=== PATIENT | female | born 1995 | race Caucasian/White ===

== ENCOUNTER 2020-04-16 21:10 | Observation (INO) ==
[2020-04-16] MEDS ORDERED: FLU Vac QV 20-21 (6Month+)/PF 0.5 ML SYRINGE IM ONE (21:32)
[2020-04-16 22:19] LABS: Bacteria,Urine Few per hpf (None-Few); Bilirubin,Urine Negative (Negative); Blood,Urine Negative (Negative); Clarity,Urine Turbid (Clear); Color,Urine Yellow (Yellow); Glucose,Urine (UA) Normal (Normal); Ketones,Urine Negative (Negative); Leukocyte Esterase,Urine Negative (Negative); Mucus,Urine Few per lpf (None-Few); Nitrite,Urine Negative (Negative); Protein,Urine Trace mg/dL (Neg-Trace); RBC,Urine 0-3 per hpf (0-3); Specific Gravity,Urine 1.021 (1.010-1.025); Squamous Epithelial Cell,Urine Few per hpf (None-Few); Transitional Epi Cells,Urine Few per hpf (None-Few); Urobilinogen,Urine Normal (Normal); WBC,Urine 0-3 per hpf (0-3)
[2020-04-16 23:23] LABS: Candida DNA Not Detected (Not Detect); Gardnerella DNA DETECTED (Not Detect); Trichomonas DNA Not Detected (Not Detect)
== END 2020-04-16 22:40 | disposition home or self-care (01) ==
LOC: 1NENULAB
PROVIDERS: ADMIT Registered Nurse; ATTEND Registered Nurse

== ENCOUNTER 2020-04-27 17:01 | Observation (INO) | END 2020-04-27 17:20 | disposition home or self-care (01) | LOC: 1NENULAB | PROVIDERS: ADMIT Advanced Practice Midwife; ATTEND Advanced Practice Midwife ==

== ENCOUNTER → 2020-06-22 02:07 | Observation (INO) | END | disposition home or self-care (01) | LOC: 1NENULAB | PROVIDERS: ADMIT Advanced Practice Midwife; ATTEND Advanced Practice Midwife ==

== ENCOUNTER 2020-06-29 10:08 | Inpatient (IN) ==
[2020-06-29] MEDS ORDERED: miSOPROStoL 25 MCG TABLET VG PRN (10:28)
[2020-06-29] MEDS ORDERED: Lidocaine 1% 20 ML MDV INFILT PRN (10:29)
[2020-06-29] MEDS ORDERED: Ondansetron 4 MG/2 ML VIAL IVP PRN (10:29)
[2020-06-29] MEDS ORDERED: *HR* Nalbuphine 10 MG/ML AMPUL IV PRN (10:29)
[2020-06-29] MEDS ORDERED: Famotidine 20 MG/2 ML VIAL IVP PRN (10:29)
[2020-06-29] MEDS ORDERED: Azithromycin 500 MG in 0.9 % Sodium Chloride 250 ML IVPB ONE (10:29)
[2020-06-29] MEDS ORDERED: Naloxone 0.4 MG/ML INJ IVP PRN (10:29)
[2020-06-29] MEDS ORDERED: Metoclopramide 10 MG/2 ML VIAL IVP PRN (10:29)
[2020-06-29] MEDS ORDERED: Oxytocin 20 units/ LR 1000 mL 20 UNIT/1,000 ML BAG IVC SCH (10:30)
[2020-06-29 11:27] LABS: Basophils % 0.2 %; Eosinophils # 0.1 K/mcL (0.0-0.6); Eosinophils % 0.6 %; Hematocrit 36.6 % (35.3-44.9); Hemoglobin 11.9 g/dL (11.5-15.4); Lymphocytes # 1.8 K/mcL (0.6-4.6); Lymphocytes % 18.7 %; Mean Corpuscular HGB Conc 32.5 g/dL (31.6-35.5); Mean Corpuscular Hemoglobin 28.3 pg (28.0-33.3); Mean Corpuscular Volume 87.1 fL (83.0-100.0); Mean Platelet Volume 10.8 fL (9.4-12.4); Monocytes # 0.7 K/mcL (0.0-1.3); Monocytes % 7.7 %; Neutrophils # 6.8 K/mcL (1.6-8.9); Platelet Count 239 K/mcL (140-400); Red Cell Distribution Width 13.6 % (11.5-14.5); Segmented Neutrophils % 71.8 %; White Blood Count 9.4 K/mcL (4.3-11.1)
[2020-06-29 11:48] LABS: Amphetamine Screen,Urine Negative ng/mL (Cutoff=1000); Barbiturate Screen,Urine Negative ng/mL (Cutoff=200); Benzodiazepines Screen,Urine Negative ng/mL (Cutoff=200); Cannabinoid Screen,Urine Negative ng/mL (Cutoff = 50); Cocaine Screen,Urine Negative ng/mL (Cutoff= 300); Opiate Screen,Urine Negative ng/mL (Cutoff=300); Phencyclidine Screen,Urine Negative ng/mL (Cutoff=25)
[2020-06-29] MEDS ORDERED: EPHEDrine 50 MG/ML VIAL IVP PRN (11:57)
[2020-06-29] MEDS ORDERED: Epidural Premix (fent/bupiv) 110 ML EP SCH (12:00)
[2020-06-29 12:29] LABS: Adenovirus Not Detected (Not Detect); Bordetella Pertussis Not Detected (Not Detect); Chlamydophila pneumoniae Not Detected (Not Detect); Coronavirus 229E Not Detected (Not Detect); Coronavirus HKU1 Not Detected (Not Detect); Coronavirus NL63 Not Detected (Not Detect); Coronavirus OC43 Not Detected (Not Detect); Human Metapneumovirus Not Detected (Not Detect); Human Rhinovirus/Enterovirus Not Detected (Not Detect); Influenza A Subtype 2009 H1 Not Detected (Not Detect); Influenza B Not Detected (Not Detect); Mycoplasma pneumoniae Not Detected (Not Detect); Parainfluenza Virus 1 Not Detected (Not Detect); Parainfluenza Virus 2 Not Detected (Not Detect); Parainfluenza Virus 3 Not Detected (Not Detect); Parainfluenza Virus 4 Not Detected (Not Detect); Respiratory Syncytial Virus Not Detected (Not Detect); SARS-CoV-2 Not Detected (Not Detect)
[2020-06-29] MEDS: Ringers Solution, Lactated 1,000 ML IVC SCH ×2 (12:36→20:28)
[2020-06-30] MEDS ORDERED: Penicillin G Potassium 5,000,000 UNIT in 0.9 % Sodium Chloride Mini Bag 100 ML IVPB ONE (10:04)
[2020-06-30] MEDS: Ringers Solution, Lactated 1,000 ML IVC SCH (10:08)
[2020-06-30] MEDS ORDERED: Azithromycin 500 MG in 0.9 % Sodium Chloride 250 ML IVPB STA (12:34)
[2020-06-30] MEDS ORDERED: Chloroprocaine/PF 20 ML VIAL INFILT ONE ×2 (12:48→13:12)
[2020-06-30] MEDS ORDERED: *HR* Morphine Sulfate/PF 10 MG/10 ML AMPUL ONE (13:13)
[2020-06-30] MEDS ORDERED: *HR* FentaNYL (PF) 100 MCG/2 ML VIAL ONE (13:13)
[2020-06-30] MEDS ORDERED: Ondansetron 4 MG/2 ML VIAL ONE (13:32)
[2020-06-30 13:35] LABS: Cord Venous Blood HCO3 22 mEq/L; Cord Venous Blood PCO2 50 mmHg (27-42); Cord Venous Blood PO2 23 mmHg (15-45)
[2020-06-30] MEDS ORDERED: *HR* HYDROmorphone (PF) 1 MG/ML SYRINGE IVP PRN (13:43)
[2020-06-30] MEDS ORDERED: Ondansetron 4 MG/2 ML VIAL IVP PRN ×2 (13:43→16:18)
[2020-06-30] MEDS ORDERED: Penicillin G Potassium 2,500,000 UNIT/105 ML MLS IVPB SCH (14:00)
[2020-06-30] MEDS ORDERED: Ropivacaine/PF 0.2% 20 ML VIAL ONE (14:26)
[2020-06-30] MEDS ORDERED: Ketorolac 30 MG/ML VIAL ONE (14:26)
[2020-06-30] MEDS ORDERED: Lidocaine -MPF 1% 5 ML AMPUL ONE (14:26)
[2020-06-30] MEDS ORDERED: Bupivacaine-MPF 0.25% 10 ML VIAL ONE (14:26)
[2020-06-30] MEDS ORDERED: Sennosides 8.6 MG TABLET PO PRN (16:18)
[2020-06-30] MEDS ORDERED: Rho Immune Globulin 1,500 UNIT SYRINGE IM ONE (16:18)
[2020-06-30] MEDS ORDERED: Clindamycin 900 MG/50 ML 900 MG/50 ML IV.SOLN IVPB SCH (16:18)
[2020-06-30] MEDS ORDERED: Metoclopramide 10 MG/2 ML VIAL IVP PRN (16:18)
[2020-06-30] MEDS: *HR* OxyCODONE/APAP 5/325 TABLET PO PRN (16:38)
[2020-06-30] MEDS: Oxytocin 20 units/ LR 1000 mL 20 UNIT/1,000 ML BAG IVC SCH (16:39)
[2020-06-30] MEDS ORDERED: Gentamicin 100 MG in 0.9 % Sodium Chloride 100 ML IVPB ONE (16:56)
[2020-06-30] MEDS: Clindamycin 900 MG/50 ML 900 MG/50 ML IV.SOLN IVPB SCH (18:12)
[2020-06-30] MEDS: Ibuprofen 600 MG TABLET PO PRN (18:19)
[2020-06-30 19:21] LABS: BUN/Creatinine Ratio 12 (6-26); Blood Urea Nitrogen 9 mg/dL (6-20); eGFR For African Americans > 60 (> 60); eGFR For Non-African Americans > 60 (> 60)
[2020-06-30] MEDS: Ampicillin 2 GM in 0.9 % Sodium Chloride Mini Bag 100 ML IVPB SCH (20:40)
[2020-07-01] MEDS: Ibuprofen 600 MG TABLET PO PRN ×4 (00:14→21:02)
[2020-07-01] MEDS: Oxytocin 20 units/ LR 1000 mL 20 UNIT/1,000 ML BAG IVC SCH (00:15)
[2020-07-01] MEDS: Clindamycin 900 MG/50 ML 900 MG/50 ML IV.SOLN IVPB SCH ×3 (00:16→14:25)
[2020-07-01] MEDS: Gentamicin 100 MG in 0.9 % Sodium Chloride 100 ML IVPB SCH ×3 (02:32→16:51)
[2020-07-01] MEDS: *HR* OxyCODONE/APAP 5/325 TABLET PO PRN ×2 (04:39→09:30)
[2020-07-01 05:07] LABS: Hematocrit 28.2 % (35.3-44.9); Mean Corpuscular Hemoglobin 28.7 pg (28.0-33.3); Mean Platelet Volume 10.4 fL (9.4-12.4); Platelet Count 163 K/mcL (140-400); Red Blood Count 3.24 M/mcL (3.82-4.97); Red Cell Distribution Width 14.1 % (11.5-14.5)
[2020-07-01 05:12] LABS: Hemoglobin 9.3 g/dL (11.5-15.4); White Blood Count 16.2 K/mcL (4.3-11.1)
[2020-07-01 05:38] LABS: Lymphocytes # 1.6 K/mcL (0.6-4.6); Neutrophils # 13.6 K/mcL (1.6-8.9); Platelet Estimate Normal (Normal); Reactive Lymphocytes Present (Not Present)
[2020-07-01] MEDS: Ampicillin 2 GM in 0.9 % Sodium Chloride Mini Bag 100 ML IVPB SCH ×4 (05:55→15:59)
[2020-07-01] MEDS: Prenatal Vit/FA 1 EACH TABLET PO SCH (08:23)
[2020-07-01] MEDS: Simethicone 80 MG TAB.CHEW PO PRN ×3 (11:35→21:23)
[2020-07-01] MEDS ORDERED: *HR* HYDROcodone/Acet 5/325 mg TABLET PO PRN (15:46)
[2020-07-02] MEDS: Ampicillin 2 GM in 0.9 % Sodium Chloride Mini Bag 100 ML IVPB SCH ×2 (00:54→05:19)
[2020-07-02] MEDS: Clindamycin 900 MG/50 ML 900 MG/50 ML IV.SOLN IVPB SCH (01:53)
[2020-07-02] MEDS: Gentamicin 100 MG in 0.9 % Sodium Chloride 100 ML IVPB SCH (04:14)
[2020-07-02] MEDS: Ibuprofen 600 MG TABLET PO PRN ×3 (05:19→19:35)
[2020-07-02] MEDS: Simethicone 80 MG TAB.CHEW PO PRN ×2 (08:14→21:22)
[2020-07-02] MEDS: Prenatal Vit/FA 1 EACH TABLET PO SCH (08:14)
[2020-07-02] MEDS: *HR* OxyCODONE Immed Rel 5 MG TABLET PO PRN ×3 (09:21→21:22)
[2020-07-02] MEDS ORDERED: Measles/Mumps/Rubella Vacc 0.5 ML VIAL SQ ONE (10:40)
[2020-07-02] MEDS ORDERED: Gentamicin 100 MG in 0.9 % Sodium Chloride 100 ML IVPB SCH (12:00)
[2020-07-02] MEDS ORDERED: Lanolin 7 G OINT...G. TP PRN (17:03)
[2020-07-03] MEDS: Ibuprofen 600 MG TABLET PO PRN ×2 (01:27→08:33)
[2020-07-03] MEDS: *HR* OxyCODONE Immed Rel 5 MG TABLET PO PRN ×2 (06:27→13:49)
[2020-07-03 08:12] VITALS: BP 119/77
[2020-07-03] MEDS: Prenatal Vit/FA 1 EACH TABLET PO SCH (08:31)
[2020-07-03] MEDS: Simethicone 80 MG TAB.CHEW PO PRN (08:33)
== END 2020-07-03 14:08 | disposition home or self-care (01) | DRG 540 ==
LOC: 1NENULAB 10:08 → 1NENUOBS 06-30 16:16
PROVIDERS: ADMIT Advanced Practice Midwife; ATTEND Advanced Practice Midwife